=== PATIENT | female | born 2000 | race Asian ===

== ENCOUNTER 2019-08-09 13:40 | Emergency (ER) | payer OTHER ==
[~2019-08-09] VITALS: Ht 154.9 cm; Wt 44.0 kg
--- NOTE | 2019-08-09 13:40 | NUR ---
Patient BIBA ALS accompanied by Marielena hardy 101, transferred to bed 12. RN evaluating patient at bedside.
[2019-08-09 13:43] VITALS: BP 90/57
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
[2019-08-09 16:26] VITALS: BP 93/51
--- NOTE | 2019-08-09 16:26 | NUR ---
Note [email or web address] in EDM - 08/09/19 at 1632 by VERÓNICA Patient discharged with v/s stable. Written and verbal after care instructions given and explained. Patient alert, oriented and verbalized understanding of instructions. Ambulatory with steady gait. All questions addressed prior to discharge. ID band removed. Patient advised to follow up with PMD. Rx of Macrobid given. Patient educated on indication of medication including possible reaction and side effects. Opportunity to ask questions provided and answered.
--- NOTE | 2019-08-09 16:26 | NUR ---
Patient discharged with v/s stable by Dr. Gaines. Written and verbal after care instructions given and explained. Patient alert, oriented and verbalized understanding of instructions. Rx of Macrobid given. Patient educated on indication of medication including possible reaction and side effects. Opportunity to ask questions provided and answered.
== END 2019-08-09 16:26 | disposition home or self-care (01) ==
LOC: MED 13:40
DX: N39.0 Urinary tract infection, site not specified (principal)
CPT/HCPCS: 81002; 81025; 99283